=== PATIENT | male | born 1940 | race Caucasian/White ===

== ENCOUNTER 2017-05-19 12:18 | Day surgery (SDC) | payer MEDICARE ==
[~2017-05-19] VITALS: Ht 188 cm; Wt 122.9 kg
[~2017-05-19 12:18] MED LIST: ASPI-973 PO; ATRV10T PO; LISI-571 PO; LORA-630 PO; MULT9LIQ6 PO; PROP40TA5 PO; SILD20TA14 PO; Sodium Chloride LOK Flush 10 mL Syringe IV PRN; TORS20TA3 PO; fentaNYL-PF 50 mCg/mL 2 mL Inj IVPUSH PRN
[2017-05-19 12:37] VITALS: BP 143/88; PULSE 63; RESP 17; O2SAT 98
[2017-05-19] MEDS: 0.9% Sodium Chloride 1,000 ML IV SCH ×3 (13:58→14:18)
[2017-05-19 14:22] VITALS: BP 121/74; PULSE 56; O2SAT 99
--- NOTE | 2017-05-19 14:23 | PCM.ENDCOL ---
Colonoscopy Date of Service: May 19, 2017 Physician Jose Jordan MD Pre Procedure Diagnosis: History of polyps Post Procedure Dx & Findings: Polyp hemorrhoids diverticuli Procedure Colonoscopy PROCEDURE IN DETAIL: Prep fair Withdrawal time 18 minutes After unremarkable rectal examination the Olympus video colonoscope was inserted patient's anal canal and was advanced to cecum. Landmarks were identified including the ileocecal valve and appendiceal orifice. Scope was withdrawn systematically. Visualized colonic mucosa showed healthy shiny mucosa with normal healthy-appearing vasculature. Cecum, there was a 2 mm polyp this was removed completely using cold snare. In the ascending colon, there was a 4 mm polyp which was removed completely using cold snare. In the transverse or colon there were 2 polyps. They were One millimeters in size. These were removed completely using cold forceps. In the sigmoid colon, there was a 2-3 mm polyp was removed completely using cold snare. However during the retrieval process, the polyp appeared to have gotten destroyed. This was not retrieved. In the sigmoid colon, and up to the distal transverse colon, diverticulosis noted. Small to medium size. Multiple.. In the rectum retroflexion was done which showed hemorrhoids. Anal canal was inspected carefully on the way out and hemorrhoids noted. Impression Polyp 5 status post complete removal Diverticuli Hemorrhoids Fair prep Recommendation Repeat colonoscopy 2 years Diverticula diet Presedation Assessment Risks and Benefits Informed consent was obtained from the patient after all risks and benefits including but not limited to drug reaction, infection, pain, bleeding, perforation, as well as alternatives were discussed. Patient monitoring Continuous pulse oximetry, cardiac monitoring, blood pressure monitoring, IV access, and oxygen at 2L per nasal cannula. Periprocedural Fentanyl: Fentanyl 75mcg Incrementally Midazolam: Midazolam 3mg Incrementally Complications There were no periprocedural complications identified. Post Procedure Plan Post Procedure Recommendations 1. Restrict activities today. 2. Resume normal activities in the morning. 3. Resume medications. 4. Patient informed of normal post procedure side effects as bloating, drowsiness, blood streaking in the stool. 5. average risk CRCS. If colon polyps come back as: -Hyperplastic- can repeat colonoscopy in 10 years -Tubular adenoma- repeat colonoscopy in 5 years -Tubulovillous/villous adenoma- repeat colonoscopy in 3 years -If any dysplasia- return to clinic as soon as possible 6. Please don't hesitate to call me with any questions. Jose Jordan MD May 19, 2017 14:23
[2017-05-19 14:33] VITALS: BP 115/63; PULSE 56; O2SAT 98
--- NOTE | 2017-05-22 15:36 | PATH ---
SURGICAL PATHOLOGY Attending Physician:Jose Jordan M.D. CASE STATUS: Signed Out PATIENT NAME: MARK LOPEZ PID: [id number] : 1940 DATE COLLECTED:05/19/2017 00:00 SPECIMEN: 1: Colon, Polyp 2: Colon, Polyp 3: Colon, Polyp CLINICAL HISTORY: SCREENING, COLON POLYPS 1. CECAL POLYP 2. ASCENDING COLON POLYP 3. TRANSVERSE COLON POLYP X2 FINAL DIAGNOSIS: 1.CECAL POLYP: TUBULAR ADENOMA. 2.ASCENDING COLON POLYP: TUBULAR ADENOMA. 3.TRANSVERSE COLON POLYPS: TUBULAR ADENOMA, 1. BENIGN COLONIC MUCOSA WITH NO DIAGNOSTIC ALTERATIONS, 1. MULTIPLE MICROSCOPIC LEVELS EXAMINED. ICD10 D12.0 D12.2 D12.3 GROSS DESCRIPTION: Received three formalin-filled containers, each labeled with the patient's name. 1. In a container labeled "cecal polyp", specimen consists of a 0.5 cm portion of tissue entirely submitted in cassette 1A. 2. In a container labeled "ascending colon polyp", specimen consists of a 0.2 x 0.2 x 0.2 cm portion of tissue which is entirely submitted in cassette 2A. 3. In a container labeled "transverse colon polyps", specimen consists of two tiny portions of tissue which aggregate to 0.2 x 0.2 x 0.2 cm. The specimen is entirely submitted in cassette 3A. ([facility]:[id number]) MICRO DESCRIPTION: See diagnosis. ICD-9 CODES: CPT CODES: 1: 78692 2: 29762 3: 47076 Electronically Signed Out Onelia Davenport MD [facility] Pathology [facility] [address], [place] [address] Technical component performed at [facility], [facility] [address], [place], [address]
== END 2017-05-19 23:59 | disposition home or self-care (01) ==
LOC: END 12:18
PROVIDERS: ATTEND Internal Medicine
DX: Z12.11 Encounter for screening for malignant neoplasm of colon (principal); Z86.010 Personal history of colon polyps; D12.0 Benign neoplasm of cecum; D12.2 Benign neoplasm of ascending colon; D12.3 Benign neoplasm of transverse colon; K64.8 Other hemorrhoids; K57.30 Diverticulosis of large intestine without perforation or abscess without bleeding; I10 Essential (primary) hypertension; E78.5 Hyperlipidemia, unspecified; I87.2 Venous insufficiency (chronic) (peripheral); R60.9 Edema, unspecified; G25.0 Essential tremor; Z79.82 Long term (current) use of aspirin
CPT/HCPCS: 45380; 45385; 99153; G0500; J2250; J3010; J7030